=== PATIENT | male | born 1945 | race Hispanic/Latino ===

== ENCOUNTER → 2020-09-06 | Outpatient (CLI) | payer OTHER ==
[~2020-09-06] MED LIST: ASPI-1012 PO; ATOR40TA71 PO; FLUT16H NASAL; HYDR-4457 PO; LISI20TA24 PO
== END | disposition home or self-care (01) ==
LOC: SHCH 10:00
PROVIDERS: ATTEND Internal Medicine Cardiovascular Disease
DX: I49.3 Ventricular premature depolarization (principal)
CPT/HCPCS: 78481; A9512

== ENCOUNTER → 2021-11-25 | Outpatient (CLI) | payer OTHER | END | disposition home or self-care (01) | LOC: SHCH 09:22 | PROVIDERS: ATTEND Internal Medicine Cardiovascular Disease | DX: I49.3 Ventricular premature depolarization (principal) | CPT/HCPCS: 93306 ==

== ENCOUNTER → 2023-01-26 | Outpatient (CLI) | payer OTHER ==
[2023-01-26 16:17] LABS: BASOPHILS # (AUTO) 0.05 K/uL (0.00-0.20); EOSINOPHILS # (AUTO) 0.09 K/uL (0.00-0.70); EOSINOPHILS % (AUTO) 1.8 % (0.0-8.0); HEMATOCRIT 41.8 % (42-54); IMMATURE GRANULOCYTE ABSOLUTE 0.02 K/uL (0-1); LYMPHOCYTES # (AUTO) 1.3 K/uL (1.0-4.8); LYMPHOCYTES % (AUTO) 24.8 % (21.0-51.0); MEAN CORPUSCULAR HEMOGLOBIN 29.4 pg (27.0-33.0); MEAN CORPUSCULAR HGB CONC 31.6 g/dL (32.0-36.0); MEAN CORPUSCULAR VOLUME 93.1 fL (79-99); MONOCYTES # (AUTO) 0.5 K/uL (0.1-1.0); MONOCYTES % (AUTO) 9.6 % (3.0-13.0); NEUTROPHILS # (AUTO) 3.2 K/uL (1.8-7.7); NEUTROPHILS % (AUTO) 62.4 % (40.0-77.0); PLATELET COUNT (AUTO) 194 K/uL (130-400); RED BLOOD CELL COUNT(AUTO) 4.49 MIL/uL (4.50-6.20); RED CELL DISTRIBUTION WIDTH 14.2 % (11.0-15.5); WHITE BLOOD COUNT (AUTO) 5.1 K/uL (4.8-10.8)
[2023-01-26 16:29] LABS: ALBUMIN 3.9 g/dL (3.5-5.0); BILIRUBIN,TOTAL 0.6 mg/dL (0.2-1.0); CREATININE 1.2 mg/dL (0.5-1.5); MAGNESIUM 1.9 mg/dL (1.80-2.40); PHOSPHORUS 3.2 mg/dL (2.5-4.9); POTASSIUM 4.4 mmol/L (3.5-5.1); TOTAL PROTEIN, SERUM 7.3 g/dL (6.0-8.3)
== END | disposition home or self-care (01) ==
LOC: LAB 14:00
PROVIDERS: ATTEND Internal Medicine Cardiovascular Disease
DX: I49.3 Ventricular premature depolarization (principal)
CPT/HCPCS: 36415; 80053; 83735; 84100; 85025

== ENCOUNTER 2023-05-13 09:18 | Day surgery (SDC) | payer OTHER ==
[2023-05-11 12:53] LABS: BASOPHILS # (AUTO) 0.05 K/uL (0.00-0.20); BASOPHILS % (AUTO) 0.7 % (0.0-5.0); EOSINOPHILS # (AUTO) 0.12 K/uL (0.00-0.70); EOSINOPHILS % (AUTO) 1.8 % (0.0-8.0); HEMATOCRIT 41.3 % (42-54); IMMATURE GRANULOCYTE ABSOLUTE 0.02 K/uL (0-1); LYMPHOCYTES # (AUTO) 0.9 K/uL (1.0-4.8); LYMPHOCYTES % (AUTO) 14.1 % (21.0-51.0); MEAN CORPUSCULAR HEMOGLOBIN 28.8 pg (27.0-33.0); MEAN CORPUSCULAR HGB CONC 33.2 g/dL (32.0-36.0); MEAN CORPUSCULAR VOLUME 86.8 fL (79-99); MONOCYTES # (AUTO) 0.5 K/uL (0.1-1.0); MONOCYTES % (AUTO) 7.3 % (3.0-13.0); NEUTROPHILS # (AUTO) 5.1 K/uL (1.8-7.7); NEUTROPHILS % (AUTO) 75.8 % (40.0-77.0); PLATELET COUNT (AUTO) 170 K/uL (130-400); RED BLOOD CELL COUNT(AUTO) 4.76 MIL/uL (4.50-6.20); RED CELL DISTRIBUTION WIDTH 14.6 % (11.0-15.5); WHITE BLOOD COUNT (AUTO) 6.7 K/uL (4.8-10.8)
[2023-05-11 13:02] LABS: INR 1.03 (0.85-1.15); PROTHROMBIN TIME 11.9 SEC (9.6-11.6)
[2023-05-11 13:03] LABS: CREATININE 1.2 mg/dL (0.5-1.5); POTASSIUM 4.9 mmol/L (3.5-5.1)
[2023-05-11 13:04] LABS: PARTIAL THROMBOPLASTIN TIME 36.2 SEC (26.3-35.5)
[2023-05-11 13:23] VITALS: BP 171/94; PULSE 72; RESP 17
[2023-05-13] VITALS (17 sets, daily range): BP systolic 131–163; BP diastolic 63–96; PULSE 66–85; RESP 8–21
[~2023-05-13] VITALS: Ht 167.6 cm; Wt 95.2 kg
[~2023-05-13 09:18] MED LIST changes: +APIX5TAB PO; -ASPI-1012 PO; -HYDR-4457 PO; +IMIP10TA5 PO; -LISI20TA24 PO; +LOSA25TA41 PO; +METF-446 PO; +METO-391 PO; +PROP325C5 PO
[2023-05-13] MEDS: 0.9%NACL 1000ML 1,000 ML IV ONE (11:19)
== END 2023-05-13 14:03 | disposition home or self-care (01) ==
LOC: DAH 09:18
PROVIDERS: ATTEND Internal Medicine Cardiovascular Disease
DX: I48.19 Other persistent atrial fibrillation (principal); I49.3 Ventricular premature depolarization; E78.00 Pure hypercholesterolemia, unspecified; I10 Essential (primary) hypertension; E11.9 Type 2 diabetes mellitus without complications; Z88.8 Allergy status to other drugs, medicaments and biological substances; Z83.3 Family history of diabetes mellitus; Z80.9 Family history of malignant neoplasm, unspecified; Z87.891 Personal history of nicotine dependence; Z72.89 Other problems related to lifestyle; Z79.84 Long term (current) use of oral hypoglycemic drugs; Z79.899 Other long term (current) drug therapy; Z98.890 Other specified postprocedural states
CPT/HCPCS: 80048; 85025; 85610; 85730; 36415; 92960; 82948; 93005 ×2; J7030; A4620; A4215; A4223 ×3; A7002; A4222; A4221; A4663; A4216; A4606; 99156

== ENCOUNTER 2023-06-10 06:00 | Observation (INO) | payer OTHER ==
[2023-06-08 13:00] VITALS: BP 164/81; PULSE 65; RESP 16
[2023-06-08 13:04] LABS: BASOPHILS # (AUTO) 0.05 K/uL (0.00-0.20); BASOPHILS % (AUTO) 0.8 % (0.0-5.0); EOSINOPHILS # (AUTO) 0.12 K/uL (0.00-0.70); HEMATOCRIT 44.4 % (42-54); IMMATURE GRANULOCYTE ABSOLUTE 0.02 K/uL (0-1); LYMPHOCYTES # (AUTO) 1.1 K/uL (1.0-4.8); LYMPHOCYTES % (AUTO) 18.8 % (21.0-51.0); MEAN CORPUSCULAR HEMOGLOBIN 28.7 pg (27.0-33.0); MEAN CORPUSCULAR HGB CONC 31.5 g/dL (32.0-36.0); MEAN CORPUSCULAR VOLUME 91.2 fL (79-99); MONOCYTES # (AUTO) 0.5 K/uL (0.1-1.0); NEUTROPHILS # (AUTO) 4.2 K/uL (1.8-7.7); NEUTROPHILS % (AUTO) 70.1 % (40.0-77.0); PLATELET COUNT (AUTO) 190 K/uL (130-400); RED BLOOD CELL COUNT(AUTO) 4.87 MIL/uL (4.50-6.20); RED CELL DISTRIBUTION WIDTH 15.1 % (11.0-15.5)
[2023-06-08 13:18] LABS: CREATININE 1.2 mg/dL (0.5-1.5); POTASSIUM 4.5 mmol/L (3.5-5.1)
[2023-06-08 13:19] LABS: INR 1.03 (0.85-1.15); PROTHROMBIN TIME 11.9 SEC (9.6-11.6)
[2023-06-08 13:20] LABS: PARTIAL THROMBOPLASTIN TIME 35.3 SEC (26.3-35.5)
[2023-06-10] VITALS (26 sets, daily range): BP systolic 118–151; BP diastolic 70–107; PULSE 71–97; RESP 14–20; O2SAT 98
[~2023-06-10] VITALS: Ht 170.2 cm; Wt 96.2 kg
[~2023-06-10 06:00] MED LIST changes: +PROP225C8 PO; -PROP325C5 PO
[2023-06-10] MEDS: 0.9%NACL 1000ML 1,000 ML IV ONE (06:37)
[2023-06-10] MEDS ORDERED: LIDOCAINE PF 100MG/5ML (2%) SYRINGE 5ML ONE (07:03)
[2023-06-10] MEDS ORDERED: GLYCOPYRROLATE 0.2 MG/ML 5 ML VIAL ONE (07:03)
[2023-06-10] MEDS ORDERED: DEXAMETHASONE SOD PHOSPHATE 10MG/ML 1ML VIAL ONE (07:03)
[2023-06-10] MEDS ORDERED: MIDAZOLAM HCL 1 MG/ML 2ML VIAL ONE (07:03)
[2023-06-10] MEDS ORDERED: PROPOFOL 10 MG/ML 20ML VIAL IV ONE (07:03)
[2023-06-10] MEDS ORDERED: PHENYLEPHRINE HCL 10 MG/ML 1ML VIAL IV ONE ×2 (07:04→08:16)
[2023-06-10] MEDS ORDERED: NEOSTIGMINE METHYLSULFATE 1MG/ML IV ONE (07:04)
[2023-06-10] MEDS ORDERED: EPHEDRINE SULFATE 50 MG/ML AMPULE ONE (07:04)
[2023-06-10] MEDS ORDERED: ROCURONIUM BROMIDE 10MG/1ML 5ML VL ONE (07:04)
[2023-06-10] MEDS ORDERED: ONDANSETRON 4MG INJ ONE (07:04)
[2023-06-10] MEDS ORDERED: FENTANYL CITRATE PF 50 MCG/1 ML 5ML AMP IV ONE (07:05)
[2023-06-10] MEDS ORDERED: HEPARIN 10,000 UNIT/10ML (1,000 UNIT/ML) VIAL ONE (07:45)
[2023-06-10] MEDS ORDERED: LIDOCAINE HCL 400MG/20ML VIAL ONE (07:45)
[2023-06-10] MEDS ORDERED: PROTAMINE SULFATE 10 MG/ML 25ML VIAL IV ONE (11:04)
[2023-06-10] MEDS: PANTOPRAZOLE 40 MG TAB DR PO ONE (13:29)
[2023-06-10] MEDS: SUCRALFATE 1 GM TABLET PO SCH (13:29)
[2023-06-10] MEDS: PROPAFENONE HCL 150 MG TABLET PO SCH (13:30)
[2023-06-10] MEDS: PANTOPRAZOLE 40 MG TAB DR ONE (13:30)
[2023-06-10] MEDS: APIXABAN 5 MG TABLET PO SCH (18:07)
[2023-06-10] MEDS: SUGAMMADEX SODIUM 200 MG/2 ML VIAL IV ONE (19:30)
[2023-06-10] MEDS: AMITRIPTYLINE 10MG TAB PO SCH (20:55)
[2023-06-10] MEDS: FLUTICASONE PROPIONATE 50MCG/SPRAY 16 GM BOTTLE NS SCH (21:00)
[2023-06-10] MEDS: METFORMIN HCL 500 MG TABLET PO SCH (21:10)
[2023-06-10] MEDS: METOPROLOL SUCCINATE 50 MG TAB.SR.24H PO SCH (21:10)
[2023-06-11] VITALS: BP 149/96; PULSE 95; RESP 22
[2023-06-11] MEDS ORDERED: ACET325T51 PO (00:04)
[2023-06-11] MEDS: ACETAMINOPHEN 325 MG TAB PO PRN (00:29)
[2023-06-11 04:00] VITALS: BP 138/87; PULSE 87; RESP 21
[2023-06-11 07:00] VITALS: BP 137/81; PULSE 83; RESP 20
[2023-06-11 08:00] VITALS: O2SAT 98
[2023-06-11] MEDS: ATORVASTATIN 40 MG TABLET PO SCH (08:45)
[2023-06-11] MEDS: LOSARTAN 25 MG TABLET PO SCH (08:45)
[2023-06-11] MEDS ORDERED: PANTOPRAZOLE 40 MG TAB DR PO SCH (09:00)
[2023-06-11] MEDS ORDERED: SUCR1ORA15 PO (09:32)
[2023-06-11] MEDS ORDERED: PANT40TA PO (09:32)
[2023-06-11 11:00] VITALS: BP 118/72; PULSE 82; RESP 20
[2023-06-11] MEDS: PANTOPRAZOLE 40 MG TAB DR PO SCH (12:18)
== END 2023-06-11 12:55 | disposition home or self-care (01) ==
LOC: DAH 06:00 → DAHIP 06:01 → DAH 06:01 → 2AH 18:11
PROVIDERS: ADMIT Internal Medicine Cardiovascular Disease; ATTEND Internal Medicine Cardiovascular Disease
DX: I48.19 Other persistent atrial fibrillation (principal); I49.3 Ventricular premature depolarization; E11.9 Type 2 diabetes mellitus without complications; I10 Essential (primary) hypertension; E78.5 Hyperlipidemia, unspecified; I42.0 Dilated cardiomyopathy; Z79.899 Other long term (current) drug therapy
CPT/HCPCS: 80048; 85025; 85610; 85730; 36415 ×3; 93005 ×2; 93656; 93657; 85347 ×6; 82948 ×4; A4344; C1894 ×3; C1732 ×2; C1893; A4215 ×2; C1731; A4649 ×2; G0378 ×25; J3010; J3490 ×4; J1100; J7030; J2720; J2001; J1644 ×3; J2250; J2704; J2405; J2710; J2371 ×2; A4223 ×3; A4222; A4221; A4663; A4216; A4606

== ENCOUNTER 2023-08-11 06:48 | Day surgery (SDC) | payer OTHER ==
[2023-08-09 10:12] LABS: BASOPHILS # (AUTO) 0.06 K/uL (0.00-0.20); BASOPHILS % (AUTO) 1.1 % (0.0-5.0); EOSINOPHILS # (AUTO) 0.13 K/uL (0.00-0.70); EOSINOPHILS % (AUTO) 2.3 % (0.0-8.0); HEMATOCRIT 42.7 % (42-54); IMMATURE GRANULOCYTE ABSOLUTE 0.03 K/uL (0-1); LYMPHOCYTES # (AUTO) 0.9 K/uL (1.0-4.8); LYMPHOCYTES % (AUTO) 16.3 % (21.0-51.0); MEAN CORPUSCULAR HEMOGLOBIN 29.8 pg (27.0-33.0); MEAN CORPUSCULAR HGB CONC 32.6 g/dL (32.0-36.0); MEAN CORPUSCULAR VOLUME 91.4 fL (79-99); MONOCYTES # (AUTO) 0.5 K/uL (0.1-1.0); MONOCYTES % (AUTO) 9.6 % (3.0-13.0); NEUTROPHILS % (AUTO) 70.2 % (40.0-77.0); PLATELET COUNT (AUTO) 167 K/uL (130-400); RED BLOOD CELL COUNT(AUTO) 4.67 MIL/uL (4.50-6.20); RED CELL DISTRIBUTION WIDTH 15.9 % (11.0-15.5); WHITE BLOOD COUNT (AUTO) 5.7 K/uL (4.8-10.8)
[2023-08-09 10:18] LABS: POTASSIUM 4.8 mmol/L (3.5-5.1)
[2023-08-09 10:40] VITALS: BP 164/83; PULSE 110; RESP 19
[2023-08-11] VITALS (9 sets, daily range): BP systolic 127–165; BP diastolic 76–94; PULSE 101–137; RESP 14–20
[~2023-08-11] VITALS: Ht 170.2 cm; Wt 92.5 kg
[~2023-08-11 06:48] MED LIST changes: +PROP150T28 PO; -PROP225C8 PO
[2023-08-11] MEDS ORDERED: PROPOFOL 10 MG/ML 20ML VIAL IV ONE (09:49)
[2023-08-11] MEDS ORDERED: DRON400T7 PO (10:08)
[2023-08-11] MEDS: 0.9%NACL 1000ML 1,000 ML IV ONE (10:11)
== END 2023-08-11 10:55 | disposition home or self-care (01) ==
LOC: DAH 06:48
PROVIDERS: ATTEND Internal Medicine Cardiovascular Disease
DX: I48.19 Other persistent atrial fibrillation (principal); I47.19 Other supraventricular tachycardia; I10 Essential (primary) hypertension; E78.5 Hyperlipidemia, unspecified; E11.9 Type 2 diabetes mellitus without complications; I42.0 Dilated cardiomyopathy; Z88.8 Allergy status to other drugs, medicaments and biological substances; Z80.9 Family history of malignant neoplasm, unspecified; Z83.3 Family history of diabetes mellitus; Z72.89 Other problems related to lifestyle; Z79.84 Long term (current) use of oral hypoglycemic drugs; Z87.891 Personal history of nicotine dependence; Z79.899 Other long term (current) drug therapy; Z98.890 Other specified postprocedural states
CPT/HCPCS: 80048; 85025; 36415; 92960; 82948; 93005 ×2; J7030; J2704; A4620; A4215; A4222; A4221; A4663; A4216; A4606; A4223 ×3; J3490

== ENCOUNTER 2024-10-10 05:22 | Emergency (ER) | payer OTHER ==
[~2024-10-10] VITALS: Ht 167.6 cm; Wt 94.8 kg
[~2024-10-10 05:22] MED LIST changes: +BUDE10.7 IH; +IMIP10TA PO; -IMIP10TA5 PO; -PROP150T28 PO
--- NOTE | 2024-10-10 06:29 | ERN ---
General Chief Complaint: Hypertension Stated Complaint: C/O HIGH B/P W/PAIN TO BACK OF HEAD Time Seen by MD: 06:17 Source: patient History of Present Illness Initial Comments 79-year-old male with a history of atrial fibrillation and PVCs and hypertension checked his blood pressure and noted that the systolic was around 190. So he decided to come to the emergency room to have his blood pressure rechecked and treated. He has no shortness of breath no chest pain. Timing/Duration: 4-6 hours Allergies: Coded Allergies: lisinopril (Verified Allergy, Unknown, 06/10/23) Home Meds Reported Medications Budesonide/Glycopyr/Formoterol (Breztri Aerosphere Inhaler) 160 Mcg-9 Mcg-4.8 Mcg/Actuation Hfa.aer.ad, 10.7 GM IH BID 06/19/24 Metoprolol Succinate (Metoprolol Succinate) 50 Mg Tab.er.24h, 50 MG PO BID, TAB 05/12/23 Metformin HCl (Metformin HCl) 1,000 Mg Tablet, 1000 MG PO BID, TAB 05/12/23 Imipramine HCl (Imipramine HCl) 10 Mg Tablet, 10 MG PO BID, TAB 05/12/23 Losartan Potassium (Losartan Potassium) 25 Mg Tablet, 25 MG PO DAILY, TAB 05/12/23 Fluticasone Propionate (Flonase Nasal [place]) 50 Mcg/Actuation [place], 2 SPRAY NASAL BID, SPRAY 05/12/23 Apixaban (Eliquis) 5 Mg Tablet, 5 MG PO BID, TAB 05/12/23 Atorvastatin Calcium (Atorvastatin Calcium) 40 Mg Tablet, 40 MG PO DAILY, TAB 05/12/23 Past Medical History Past Medical History: A-Fib, Diabetes-Type II, Hypertension Past Surgical History: Other Surgical History Other: CARDIAC ABLATION ROS Dictation Review of systems is negative beyond his concern about his high blood pressure. No chest pain no shortness of breath no fevers no chills no abdominal pain no difficulty urinating or defecating. Physical Exam Orientation: (+) alert, (+) oriented x 3 Head/Face Trauma: No Eye: bilateral eye normal inspection, bilateral eye PERRL, bilateral eye EOMI Ear, Nose, Throat: (+) hearing grossly normal, (+) normal ENT inspection Neck: (+) normal inspection, (+) supple, (+) no JVD Respiratory: (+) chest non-tender, (+) lungs clear Heart: (+) regular, (+) no gallop Vascular: (+) no edema, (+) no JVD Gastrointestinal: (+) soft, (+) non-tender, (+) bowel sound present Results Laboratory and Microbiology Lab and Micro Result Laboratory Tests Test 10/10/24 06:21 White Blood Count 5.7 K/uL (4.8-10.8) Red Blood Count 4.38 MIL/uL (4.50-6.20) L Hemoglobin 12.9 g/dL (14.0-18.0) L Hematocrit 39.1 % (42-54) L Mean Corpuscular Volume 89.3 fL (79-99) Mean Corpuscular Hemoglobin 29.5 pg (27.0-33.0) Mean Corpuscular Hemoglobin Concent 33.0 g/dL (32.0-36.0) Red Cell Distribution Width 14.2 % (11.0-15.5) Platelet Count 145 K/uL (130-400) Mean Platelet Volume 11.1 fL (7.5-10.5) H Immature Granulocyte % (Auto) 0.5 % (0-1) Neutrophils (%) (Auto) 73.4 % (40.0-77.0) Lymphocytes (%) (Auto) 14.3 % (21.0-51.0) L Monocytes (%) (Auto) 9.2 % (3.0-13.0) Eosinophils (%) (Auto) 1.9 % (0.0-8.0) Basophils (%) (Auto) 0.7 % (0.0-5.0) Neutrophils # (Auto) 4.2 K/uL (1.8-7.7) Lymphocytes # (Auto) 0.8 K/uL (1.0-4.8) L Monocytes # (Auto) 0.5 K/uL (0.1-1.0) Eosinophils # (Auto) 0.11 K/uL (0.00-0.70) Basophils # (Auto) 0.04 K/uL (0.00-0.20) Absolute Immature Granulocyte (auto 0.03 K/uL (0-1) Nucleated Red Blood Cells 0.0 % (0.0-0.19) Sodium Level 141 mmol/L (136-145) Potassium Level 4.0 mmol/L (3.5-5.1) Chloride Level 107 mmol/L (101-111) Carbon Dioxide Level 26 mmol/L (21-32) Blood Urea Nitrogen 16 mg/dL (7-18) Creatinine 1.1 mg/dL (0.5-1.3) Glomerular Filtration Rate Calc 68 mL/min (>90) Random Glucose 145 mg/dL (70-105) H Total Calcium 8.9 mg/dL (8.5-10.1) Troponin I High Sensitivity 18 ng/L (4-75) Labs Reviewed?: Yes MDM MDM: Differential diagnosis: Idiopathic hypertensive episode versus acute NV versus pain versus anxiety versus fluid overload versus catecholamine surge 1st his noncompliance Rationale: Tests considered and ordered secondary to shared decision making include: Previous outside records reviewed: Old ER visits. Risk of complication and/or morbidity or mortality of patient management: None Medications-Per medication reconciliation Need for hospitalization: Patient does meet criteria for hospitalization. Need for emergency major/minor surgery: No There are no social concerns with this patient. Prescription drug management Prescriptions will include symptomatic care Patient's prior external medical records from other ER visits were reviewed by me as indicated. Prior testing and results from previous visits were reviewed. Prior tests were taken into account with medical decision making and resource utilization, independent historian/historians were used to obtain complete medical history. I independently interpreted the test that were performed, results were reviewed by me and considered findings on radiology if ordered. PATIENT PRESENTS TO THE EMERGENCY ROOM AND HIS COMPLAINT IN HIS ELEVATED BLOOD PRESSURE. THROUGHOUT ER VISIT PATIENT HAS BEEN STABLE RECEIVED ONE DOSE OF ANTIHYPERTENSIVE MEDICATION BLOOD PRESSURE HAS BEEN CONTROLLED. PATIENT DOES DISCLOSE THAT HE HAS NOT BEEN TAKING HIS [place] INDICATED. PATIENT WAS EDUCATED ON APPROPRIATE ADMINISTRATION OF HYPERTENSIVE MEDICATION. PATIENT ALSO STATES HE HAS A HISTORY OF ATRIAL FIBRILLATION IN HIS CURRENTLY TAKING METOPROLOL. PATIENT WAS ALSO EDUCATED ON TAKING HIS METOPROLOL. PATIENT STATES HE FEELS BETTER GO HOME DOES NOT WANT TO STAY WE WILL BE DISCHARGED IN STABLE CONDITION WITH A DIAGNOSIS OF HYPERTENSIVE URGENCY WITH NONCOMPLIANCE TO MEDICATION. Standard labs were ordered I gave the patient IV hydralazine. ED Course Orders Procedure Category Date Status Time Hydralazine 20mg Inj PHA 10/10/24 Complete (Apresoline 20mg In 06:30 Basic Metabolic Panel LAB 10/10/24 Complete 06:25 Cbc With Differential LAB 10/10/24 Complete 06:25 Troponin I High LAB 10/10/24 Complete Sensitivity 06:25 12 Lead Ekg Tracing- EKG 10/10/24 Complete Technical 06:25 Current Medications Medications (Trade) Dose Ordered Sig/Steve Route PRN Reason Start Time Stop Time Status Last Admin Dose Admin Hydralazine HCl (APRESOLine 20MG INJ) 20 mg ONCE ONCE IV 10/10/24 06:30 10/10/24 06:31 DC 10/10/24 06:41 Vital Signs Date Time Temp Pulse Resp B/P (MAP) Pulse Ox O2 Delivery O2 Flow Rate FiO2 10/10/24 08:00 98.1 106 13 128/87 97 Room Air* 0 21 10/10/24 06:51 105 19 141/79 96 Room Air* 0 21 10/10/24 06:22 106 19 189/83 96 Room Air* 0 21 10/10/24 05:27 98.1 67 20 195/99 97 Room Air DX & DISP Disposition: Discharge Departure Impression: Primary Impression: Atrial fibrillation with RVR Additional Impressions: Hypertension, Noncompliance Condition: Stable Additional Instructions: YOU HAVE BEEN REVIEWED IN THE EMERGENCY DEPARTMENT AT [facility] AFTER PRESENTING WITH CHEST PAIN. AFTER CONSIDERING YOUR HISTORY, YOUR RISK FACTORS, YOUR EKG AND YOUR BLOOD TEST TROPONINS, HAVE BEEN FOUND TO BE AT VERY LOW RISK LESS THAN (1 IN 100) OF HAVING A MAJOR ADVERSE CARDIAC EVENT (LIKE HEART ATTACK) IN THE NEAR FUTURE. IN THE " LOW RISK" GROUP, THE RISKS OF DOING FURTHER TESTS AND TREATMENT THE INPATIENT OUTWEIGHS THE BENEFITS. IN MANY PATIENTS IN THE LOW RISK GROUP FOR THE TEST OF ANY SORT OR UNNECESSARY, HOWEVER HE SHOULD DISCUSS THIS FURTHER WITH HIS GENERAL PRACTITIONER WHO WILL UNDERSTAND THE MEDICAL AND PERSONAL BACKGROUNDS BETTER. BECAUSE WE HAVE NEVER DECLARED YOU" NO RISK" WE WOULD SUGGEST. 1 RETURNING FOR MEDICAL REVIEW IF YOU HAVE FURTHER EPISODES OF CHEST PAIN/ARM PAIN OR OTHER CONCERNING SYMPTOMS LIKE DIZZINESS, COLLAPSE, PALPITATIONS OR SHORTNESS OF BREATH. 2. FOLLOWING UP WITH YOUR LOCAL DOCTOR WHO WILL CONSIDER THE NEED FOR FURTHER TESTING AND WILL ALSO ENSURE THAT ANY MODIFIABLE RISK FACTORS YOU MAY HAVE FOR HEART DISEASE ARE OPTIMALLY MANAGED. PATIENT WILL BE DISCHARGED IN STABLE CONDITION AT THE MOMENT DISCHARGE PATIENT STATES , NO CHEST PAIN Referrals: CINTIA US MD (PCP) Time of Disposition: 08:41 RICHARD ALEMAN MD Oct 10, 2024 06:29 JALEESA SUN MD Oct 10, 2024 08:42
--- NOTE | 2024-10-10 06:38 | EKG ---
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
[2024-10-10 06:47] LABS: IMMATURE GRANULOCYTE ABSOLUTE 0.03 K/uL (0-1); NUCLEATED RED BLOOD CELLS 0.0 % (0.0-0.19); PLATELET COUNT (AUTO) 145 K/uL (130-400); RED BLOOD CELL COUNT(AUTO) 4.38 MIL/uL (4.50-6.20); RED CELL DISTRIBUTION WIDTH 14.2 % (11.0-15.5); WHITE BLOOD COUNT (AUTO) 5.7 K/uL (4.8-10.8)
[2024-10-10 06:54] LABS: CREATININE 1.1 mg/dL (0.5-1.3); GLOMERULAR FILTR. RATE CALC 68.0 mL/min (>90); GLUCOSE,RANDOM 145.0 mg/dL (70-105); SODIUM SERUM 141.0 mmol/L (136-145); UREA NITROGEN, BLOOD 16.0 mg/dL (7-18)
--- NOTE | 2024-10-10 07:30 | NUR ---
ASSUMED PATIENT CARE AT THIS TIME
[2024-10-10 08:00] VITALS: BP 128/87; PULSE 106; RESP 13; TEMP 98; O2SAT 97
--- NOTE | 2024-10-10 09:52 | NUR ---
DC PATIENT WAS DC'D BY DR DINO Duffy DC'D PATIENTS IV WITH CATH STILL INTACT AND APPLIED 2X2 GAUZE WITH COBAN I EXPLAINED TO PATIENT TO FOLLOW UP WITH PCP, AND PROVIDED INFO BASED ON DIAGNOSIS, I ALSO ANSWERED ANY QUESTIONS THE PATIENT HAD, PATIENT AMBULATED OUT OF ED, NO COMPLICATIONS
== END 2024-10-10 09:50 | disposition home or self-care (01) ==
LOC: EDH 05:22
DX: I48.20 Chronic atrial fibrillation, unspecified (principal); I10 Essential (primary) hypertension; E11.9 Type 2 diabetes mellitus without complications; Z79.01 Long term (current) use of anticoagulants; Z79.84 Long term (current) use of oral hypoglycemic drugs; Z79.899 Other long term (current) drug therapy; Z88.8 Allergy status to other drugs, medicaments and biological substances; Z91.199 Patient's noncompliance with other medical treatment and regimen due to unspecified reason
CPT/HCPCS: 99284; 96374; 84484; 80048; 85025; 36415; 93005; J0360

== ENCOUNTER 2025-01-18 05:46 | Observation (INO) | payer OTHER ==
[2025-01-16 11:10] VITALS: BP 154/87; PULSE 53; RESP 13; TEMP 97.3
[2025-01-16 11:51] LABS: IMMATURE GRANULOCYTE ABSOLUTE 0.00 K/uL (0-1); NUCLEATED RED BLOOD CELLS 0.0 % (0.0-0.19); PLATELET COUNT (AUTO) 154 K/uL (130-400); RED BLOOD CELL COUNT(AUTO) 4.22 MIL/uL (4.50-6.20); RED CELL DISTRIBUTION WIDTH 14.6 % (11.0-15.5); WHITE BLOOD COUNT (AUTO) 4.5 K/uL (4.8-10.8)
--- NOTE | 2025-01-16 11:54 | EKG ---
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
[2025-01-16 11:59] LABS: CREATININE 1.1 mg/dL (0.5-1.3); GLOMERULAR FILTR. RATE CALC 68.0 mL/min (>90); GLUCOSE,RANDOM 138.0 mg/dL (70-105); SODIUM SERUM 143.0 mmol/L (136-145); UREA NITROGEN, BLOOD 23.0 mg/dL (7-18)
[2025-01-16 12:11] LABS: INR 1.01 (0.85-1.15)
[2025-01-18] VITALS (14 sets, daily range): BP systolic 98–164; BP diastolic 51–86; PULSE 75–106; RESP 16–20; TEMP 97.3–99.1; O2SAT 98
[~2025-01-18] VITALS: Ht 167.6 cm; Wt 96.4 kg
[~2025-01-18 05:46] MED LIST changes: -BUDE10.7 IH
[2025-01-18] MEDS: 0.9%NACL 1000ML 1,000 ML IV SCH (06:44)
[2025-01-18] MEDS ORDERED: SODIUM BICARB 50MEQ 50ML VIAL 50 ML ONE (07:28)
[2025-01-18] MEDS ORDERED: LIDOCAINE HCL 400MG/20ML VIAL ONE ×3 (07:28→10:12)
[2025-01-18] MEDS ORDERED: HEParin-NS 1,000 UNIT/500 ML 1,500 ML IV ONE (07:29)
[2025-01-18] MEDS ORDERED: MIDAZOLAM HCL 1 MG/ML 2ML VIAL ONE ×2 (07:50→10:23)
[2025-01-18] MEDS ORDERED: PROTamine SULFate 10 MG/ML 25ML VIAL IV ONE (13:07)
[2025-01-18] MEDS ORDERED: IOHEXOL-350 50ML VIAL IV ONE (13:12)
[2025-01-18 18:04] LABS: NUCLEATED RED BLOOD CELLS 0.0 % (0.0-0.19); PLATELET COUNT (AUTO) 127.0 K/uL (130-400); RED BLOOD CELL COUNT(AUTO) 3.47 MIL/uL (4.50-6.20); RED CELL DISTRIBUTION WIDTH 14.8 % (11.0-15.5); WHITE BLOOD COUNT (AUTO) 8.3 K/uL (4.8-10.8)
--- NOTE | 2025-01-18 18:45 | NUR ---
dr james made aware of pts labs results no changes at this time
--- NOTE | 2025-01-18 19:38 | NUR ---
report called to elizabeth nurse taking over in 221, pt taken via hospital bed
[2025-01-18] MEDS: AMITRIPTYLINE 10MG TAB PO SCH (21:16)
[2025-01-18] MEDS: DRONEDARONE HYDROCHLORIDE 400 MG TABLET PO SCH (21:16)
[2025-01-19 04:30] VITALS: BP 95/47; PULSE 76; RESP 18; TEMP 98
[2025-01-19 08:08] VITALS: BP 123/66; PULSE 92; RESP 18; TEMP 98.3
--- NOTE | 2025-01-19 09:35 | NUR ---
DCP:HOME Pt currently lives at home with his Koki Montiel [phone]. pt does not have any DME, home health, or provider services. Pt is able to complete ADLs independently. PCP is Dr. Spike Segundo. At ME pt will want to go home and family can assist with transportation. Addendum: 01/19/25 at 0937 by JODIE IZAGUIRRE SS Amended: Links added.
[2025-01-19 12:15] VITALS: BP 128/70; PULSE 91; RESP 18; TEMP 98
[2025-01-19] MEDS ORDERED: DRON400T7 PO (12:53)
[2025-01-19 15:54] VITALS: BP 123/69; PULSE 89; RESP 18; TEMP 98.2
--- NOTE | 2025-01-20 15:16 | NUR ---
DISCHARGE INSTRUCTIONS READ AND DISCUSSED WITH PATIENT. QUESTIONS ANSWERED. PATIENT'S PERIPHERAL IV DISCONTINUED AND MANUAL PRESSURE APPLIED X 10 MINUTES. PATIENT TOLERATED THAT WITH NO VOICED DISCOMFORT. COPIES OF DISCHARGE INSTRUCTIONS PROVIDED AND PATIENT HAS ALREADY MADE HIS OWN APPOINTMENTS. I NOTIFIED HIM THAT HIS MEDICATIONS NEED TO BE PICKED UP AND WERE ELECTRONICALLY SENT TO THE PHARMACY OF CHOICE. HE VERBALIZED UNDERSTANDING. PATIENT ASSISTED INTO WHEELCHAIR AND TRANSPORTED DOWN TO [facility] VIA WHEELCHAIR AND ACCOMPANIED BY FAMILY MEMBER. HE VOICED NO PAIN NOR OTHER DISCOMFORT AT THIS TIME.
== END 2025-01-19 16:15 | disposition home or self-care (01) ==
LOC: DAH 05:46 → DAHIP 05:47 → DAH 05:47 → 2DH 20:25
PROVIDERS: ADMIT Internal Medicine Cardiovascular Disease; ATTEND Internal Medicine Cardiovascular Disease
DX: I47.20 Ventricular tachycardia, unspecified (principal); I49.3 Ventricular premature depolarization; I42.0 Dilated cardiomyopathy; R79.1 Abnormal coagulation profile; I10 Essential (primary) hypertension; E78.5 Hyperlipidemia, unspecified; E11.9 Type 2 diabetes mellitus without complications; Z79.899 Other long term (current) drug therapy; Z98.890 Other specified postprocedural states
CPT/HCPCS: 80048; 85025; 85610; 85730; 36415 ×2; 93005; 93654; 99156; 99157 ×6; 85347 ×12; 85027; 82948 ×2; C1893; C1894 ×4; C1732 ×4; C1760 ×3; A4649 ×2; C1766; G0378 ×23; J3010 ×2; J3490 ×4; J7030; J2720; J1644 ×5; J2250 ×2; Q9967; A4215; A4223 ×3; A4222; A4221; A4663; A4216; A4606